=== PATIENT | female | born 1980 | race African-American/Black ===

== ENCOUNTER 2019-05-15 00:57 | Emergency (ER) | payer SELFPAY ==
[~2019-05-15] VITALS: Ht 170.2 cm; Wt 199.6 kg
[2019-05-15] MEDS ORDERED: PANTOPRAZOLE 40 MG 10ML VIAL IV STA (01:23)
[2019-05-15] MEDS ORDERED: SODIUM CHLORIDE 0.9% 1000ML 1,000 ML IV STA (01:23)
--- NOTE | 2019-05-15 01:25 | NUR ---
ATTEMPTED TO PLACE IV FOR ROUTINE LAB DRAWS AND ADDTIONAL TREATMENT (PROTONIX IV) AND SHE STATED SHE WANTED TO WAIT TILL HER MOTHER CAME BECAUSE SHE FELT SHE WAS NOT BEING TREATED RIGHT BY DOCTOR (DR. RADFORD HAD STATED TO PATIENT HE HAD SEEN HER HERE BEFORE DESPITE PT STATING SHE HAS NOT EVER BEEN HERE), STATED THAT WAS FINE AND CAME OUT OF ROOM, PT WALKED OUT ABOUT 2 MINUTES LATER AND SAID SHE WANTED TO SIGN THE PAPERWORK SO SHE CAN LEAVE, SHE STATED SHE WAS NOT TREATED FAIRLY OVER THERE (POINTED TO BACK OF BUILDING) AND NOW SHE CAME HERE AND WE TREATED HER THE SAME WAY, I NOTIFIED HER TO ASK THE SOLOIST DANCER FOR AN AMA LETTER TO SIGN.PT LEFT WITHOUT ANY DISTRESS NOTED. SOLOIST DANCER TRIED AGAIN TO GET SOME FORM OF IDENTIFICATION FROM PATIENT BUT PATIENT STATES SHE HAS NOTHING.
== END 2019-05-15 02:05 | disposition left against medical advice (07) ==
LOC: FSED 00:57
DX: R07.89 Other chest pain (principal); K21.0 Gastro-esophageal reflux disease with esophagitis; Z86.711 Personal history of pulmonary embolism; D68.59 Other primary thrombophilia; E66.9 Obesity, unspecified; Z68.44 Body mass index [BMI] 60.0-69.9, adult
CPT/HCPCS: 93005; 99282; J7030